=== PATIENT | male | born 1995 | race Caucasian/White ===

== ENCOUNTER 2019-01-28 15:26 | Emergency (ER) | payer OTHER ==
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
--- NOTE | 2019-01-28 16:35 | XR ---
EXAMINATION TYPE: XR ankle complete RT DATE OF EXAM: 01/28/2019 COMPARISON: NONE HISTORY: Foot pain and ankle pain TECHNIQUE: 3 views FINDINGS: There is mild soft tissue swelling over the medial malleolus. I see no fracture nor disloca tion. Joint spaces are normal. IMPRESSION: Soft tissue swelling. No fracture.
--- NOTE | 2019-01-28 16:36 | XR ---
EXAMINATION TYPE: XR foot complete RT DATE OF EXAM: 01/28/2019 COMPARISON: NONE HISTORY: Foot pain TECHNIQUE: 3 views FINDINGS: Metatarsals are intact. I see no fracture nor dislocation. There are no erosions. Joint spa jesus are fairly normal. IMPRESSION: Negative right foot exam.
[2019-01-28] MEDS ORDERED: CEPHALEXIN 500MG STARTER PACK 4 CAP BTL PO STA (17:12)
[2019-01-28 17:21] VITALS: BP 135/73; PULSE 66; RESP 18; TEMP 98
== END 2019-01-28 17:21 | disposition home or self-care (01) ==
LOC: EC 15:26
DX: S93.401A Sprain of unspecified ligament of right ankle, initial encounter (principal); L03.115 Cellulitis of right lower limb; F17.200 Nicotine dependence, unspecified, uncomplicated; Z88.0 Allergy status to penicillin; V17.4XXA Pedal cycle driver injured in collision with fixed or stationary object in traffic accident, initial encounter; Y93.55 Activity, bike riding; Y92.410 Unspecified street and highway as the place of occurrence of the external cause
CPT/HCPCS: 99283